=== PATIENT | male | born 1950 | race Caucasian/White ===

== ENCOUNTER 2022-11-19 21:14 | Inpatient (IN) | payer MEDICARE, BC ==
[~2022-11-19] VITALS: Ht 170.2 cm; Wt 82.6 kg
--- NOTE | 2022-11-19 21:20 | NUR ---
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 PATIENT WAS GIVEN ASPIRIN 325 MG, AND NITROGLYCERIN X 2 SKIN PASS OPERATOR. PT IS AAO X 4, HARD OF HEARING, DOES NOT APPEAR IN DISTRESS. PER PATIENT SYMPTOMS INCLUDE MILD DYSPNEA. PT IS TACHYPNEIC AT TRIAGE , DENIES NAUSEA/VOMITING. PT ATTACHED TO MONITOR AND PULSE OX. AWAITING MD CARRANZA
--- NOTE | 2022-11-19 21:30 | NUR ---
SWAB FOR COVID19 SENT TO LAB
--- NOTE | 2022-11-19 21:40 | NUR ---
HEALTH POLICY NURSE AT BEDSIDE
--- NOTE | 2022-11-19 21:40 | NUR ---
BLOOD DRAWN, SENT TO LAB
[2022-11-19 21:45] LABS: BASOPHILS % (AUTO) 0.3 % (0.0-2.0); EOSINOPHILS % (AUTO) 2.5 % (0.0-6.0); HEMATOCRIT 43 % (39-51); HEMOGLOBIN 14.2 g/dL (13.5-17.5); LYMPHOCYTES # (AUTO) 2.4 K/uL (0.8-4.8); LYMPHOCYTES % (AUTO) 28.8 % (20.0-44.0); MEAN CORPUSCULAR HGB CONC 33 g/dl (31.0-36.0); MEAN CORPUSCULAR VOLUME 85 fL (80-96); MONOCYTES # (AUTO) 0.6 K/uL (0.1-1.30); MONOCYTES % (AUTO) 7.1 % (2.0-12.0); NEUTROPHILS # (AUTO) 5.2 K/uL (1.8-8.9); NEUTROPHILS % (AUTO) 61.3 % (43.0-81.0); PLATELET COUNT (AUTO) 172 K/uL (150-450); RED BLOOD CELL COUNT(AUTO) 5.02 MIL/uL (4.5-6.0); WHITE BLOOD COUNT (AUTO) 8.4 K/uL (4.3-11.0)
[2022-11-19 21:58] LABS: CALCIUM, SERUM 9.4 mg/dL (8.5-10.1); CARBON DIOXIDE 31 mmol/L (21-32); CHLORIDE 99 mmol/L (98-107); CREATININE 1.1 mg/dL (0.6-1.3); GLUCOSE 130 mg/dL (74-106); SODIUM SERUM 137 mmol/L (136-145); UREA NITROGEN, BLOOD 18 mg/dL (7-18)
[2022-11-19 22:04] LABS: ALANINE AMINOTRANSFERASE 21 U/L (12-78); ALKALINE PHOSPHATASE 75 U/L (46-116); ASPARTATE AMINOTRANSFERASE 17 U/L (15-37); BILIRUBIN,DIRECT 0.2 mg/dL (0.0-0.2); BILIRUBIN,TOTAL 0.6 mg/dL (0.2-1.0)
--- NOTE | 2022-11-19 22:13 | NUR ---
PT STILL UNABLE TO PROVIDE URINE SPECIMEN AT THIS TIME.
--- NOTE | 2022-11-19 22:25 | NUR ---
DR VITALE AT BEDSIDE
--- NOTE | 2022-11-19 22:46 | NUR ---
MRSA SWAB COLLECTED, SENT TO LAB
[2022-11-20] VITALS: BP 164/97
[2022-11-20] MEDS ORDERED: MAG HYDROX/AL HYDROX/SIMETH 30 ML UDC PO PRN
[2022-11-20] MEDS ORDERED: MORPHINE SULFATE INJ 2 MG/ML DISP.SYRIN IV PRN
[2022-11-20] MEDS ORDERED: ONDANSETRON HCL/PF 4 MG/2 ML VIAL IVP PRN
[2022-11-20] MEDS ORDERED: DOCUSATE SODIUM 100 MG CAPSULE PO PRN
[2022-11-20] MEDS ORDERED: ACETAMINOPHEN 325 MG TABLET PO PRN
[2022-11-20] MEDS ORDERED: hydrALAZINE HCL IV 20 MG VIAL IV PRN
[2022-11-20] MEDS ORDERED: NITROGLYCERIN 0.4 MG/TAB BOTTLE SL PRN
--- NOTE | 2022-11-20 00:32 | NUR ---
[id number]
--- NOTE | 2022-11-20 00:38 | NUR ---
REPORT GIVEN TO KEELY PHILIPPE
[2022-11-20 01:00] VITALS: BP 164/97
--- NOTE | 2022-11-20 01:00 | NUR ---
RN NOTE PT A/O X4 ABLE TO MAKE NEEDS KNOW ON 1L OF OXYGEN TOLERATING WELL. NO RESPIRATORY DISTRESS NOTED. PT REPORTED NO PAIN AT THIS TIME. PT NOTED WITH IV ACCESS ON THE LAC #18G S/L INTACT FLUSHING WELL.PT PLACED ON TELE MONITOR READING SR 70S. PT REPORTED TO CHEST PAIN AT THIS TIME. PT ORIENTED TO UNIT AND ROOM TABLE WITHIN REACH.HOB ELEVATED FOR SAFETY. CALL LIGHT WITHIN REACH.
--- NOTE | 2022-11-20 01:06 | NUR ---
TRANSFERRED TO BED 313 IN STABLE CONDITION
--- NOTE | 2022-11-20 01:12 | NUR ---
PT TRANSFERRED TO [facility] 314-1 VIA ACLS PROTOCOL. VS WNL.
[2022-11-20] MEDS: FUROSEMIDE 20 MG/2 ML VIAL IV SCH ×3 (01:28→16:15)
[2022-11-20 04:00] VITALS: BP 145/77
[2022-11-20 05:57] LABS: BILIRUBIN,URINE NEGATIVE (NEGATIVE); COLOR,URINE YELLOW (YELLOW); LEUKOCYTE ESTERASE ,URINE NEGATIVE (NEGATIVE); NITRITE, URINE NEGATIVE (NEGATIVE); PH,URINE 7.5 (5.0-8.0); PROTEIN,URINE NEGATIVE (NEGATIVE); UGLUCOSE NEGATIVE (NEGATIVE); UROBILINOGEN,URINE 0.2 EU/dL (0.2)
--- NOTE | 2022-11-20 06:38 | NUR ---
RN NOTE PT A/O X4 ABLE TO MAKE NEEDS KNOW ON 1L OF OXYGEN TOLERATING WELL. NO RESPIRATORY DISTRESS NOTED. PT REPORTED NO PAIN AT THIS TIME. PT WITH IV ACCESS ON THE LAC #18G S/L INTACT FLUSHING WELL.PT PLACED ON TELE MONITOR READING SR 70S. PT REPORTED NO CHEST PAIN AT THIS TIME. PT WITH BILATERAL HEARING AIDS ON AT THIS TIME.PT WITH URINE OUTPUT 700ML DURING SHIFT. ALL NEEDS MET. WILL ENDORSE CARE TO DAY SHIFT NURSE.
--- NOTE | 2022-11-20 07:06 | NUR ---
SIGN PAINTER APPRENTICE OPENING NOTES RECEIVED PATIENT SLEEPING IN BED, A/Ox4, [place], HEARING AIDS IN PLACE, ABLE TO MAKE NEEDS KNOWN. ON 1L OF O2 VIA NC. NO S/S OF RESPIRATORY DISTRESS. ON TELE MONITORING SHOWING SINUS RHYTHM HR 73. NO S/S OF CARDIAC DISTRESS OR DISCOMFORT. IV ACCESS LAC #18 S/L. INTACT AND PATENT, NO S/S OF INFILTRATION. PATIENT CONTINENT USES URINAL. SKIN INTACT. SAFETY MEASURES IN PLACE: BED LOCKED AND IN LOWEST POSITION, HOB ELEVATED, SIDE RAILS UPx2, CALL LIGHT WITHIN REACH. WILL CONTINUE TO MONITOR.
[2022-11-20 07:08] LABS: BASOPHILS % (AUTO) 0.3 % (0.0-2.0); EOSINOPHILS % (AUTO) 2.4 % (0.0-6.0); HEMATOCRIT 39 % (39-51); HEMOGLOBIN 13.2 g/dL (13.5-17.5); LYMPHOCYTES # (AUTO) 1.9 K/uL (0.8-4.8); LYMPHOCYTES % (AUTO) 26.1 % (20.0-44.0); MEAN CORPUSCULAR HGB CONC 34 g/dl (31.0-36.0); MEAN CORPUSCULAR VOLUME 84 fL (80-96); MONOCYTES # (AUTO) 0.6 K/uL (0.1-1.30); MONOCYTES % (AUTO) 8.3 % (2.0-12.0); NEUTROPHILS # (AUTO) 4.7 K/uL (1.8-8.9); NEUTROPHILS % (AUTO) 62.9 % (43.0-81.0); PLATELET COUNT (AUTO) 164 K/uL (150-450); RED BLOOD CELL COUNT(AUTO) 4.67 MIL/uL (4.5-6.0); WHITE BLOOD COUNT (AUTO) 7.4 K/uL (4.3-11.0)
[2022-11-20 07:33] LABS: ALBUMIN 3.5 g/dL (3.4-5.0); BILIRUBIN,TOTAL 0.9 mg/dL (0.2-1.0); CALCIUM, SERUM 8.9 mg/dL (8.5-10.1); MAGNESIUM 2.2 mg/dL (1.8-2.4); PHOSPHORUS 3.3 mg/dL (2.5-4.9); POTASSIUM 3.8 mmol/L (3.5-5.1); TOTAL PROTEIN, SERUM 7.1 g/dL (6.4-8.2)
[2022-11-20] MEDS ORDERED: HYDR-3976 PO (07:45)
[2022-11-20 07:53] LABS: THYROID STIMULATING HORMONE 1.414 uIU/mL (0.358-3.74)
[2022-11-20] MEDS: ASPIRIN 81 MG TAB.CHEW PO SCH (08:35)
[2022-11-20] MEDS ORDERED: ENOXAPARIN SODIUM 40 MG/0.4 ML DISP.SYRIN SQ SCH (09:00)
--- NOTE | 2022-11-20 09:07 | NUR ---
RN NOTES PATIENT COMPLAINED OF GENERALIZED PAIN 8/. PRN MORPHINE ADMINISTERED, WILL CONTINUE TO MONITOR.
[2022-11-20 09:57] LABS: CHOLESTEROL 169 mg/dL (<200); HDL CHOLESTEROL 50 mg/dL (40-60); LDL 114 mg/dL (0-99); TRIGLYCERIDES 47 mg/dL (30-150)
[2022-11-20] MEDS ORDERED: ENOXAPARIN SODIUM 40 MG/0.4 ML DISP.SYRIN SQ ONE (10:00)
[2022-11-20] MEDS ORDERED: ENOXAPARIN SODIUM 80 MG/0.8 ML DISP.SYRIN SQ SCH (10:00)
[2022-11-20] MEDS: METOPROLOL TARTRATE 50 MG TABLET PO SCH ×2 (10:09→20:46)
[2022-11-20] MEDS: MORPHINE SULFATE INJ 4 MG/ML DISP.SYRIN IV PRN ×3 (13:32→21:50)
--- NOTE | 2022-11-20 13:33 | NUR ---
RN NOTES PATIENT COMPLAINED OF GENERALIZED PAIN 8/10, PRN MORPHINE ADMINISTERED. WILL CONTINUE TO MONITOR.
[2022-11-20 14:00] VITALS: BP 158/88
--- NOTE | 2022-11-20 17:45 | NUR ---
RN NOTES PATIENT COMPLAINED OF PAIN 8/10 GENERALIZED, PRN MORPHINE ADMINISTERED. WILL CONTINUE TO MONITOR.
--- NOTE | 2022-11-20 18:41 | NUR ---
STAPLE CUTTER CLOSING NOTES RECEIVED PATIENT AWAKE IN BED, A/Ox4, ANIAK, HEARING AIDS IN PLACE, ABLE TO MAKE NEEDS KNOWN. STABLE ON 1L OF O2 VIA NC. NO S/S OF RESPIRATORY DISTRESS. ON TELE MONITORING SHOWING SINUS RHYTHM HR 90 NO S/S OF CARDIAC DISTRESS OR DISCOMFORT. IV ACCESS LAC #18 S/L. INTACT AND PATENT, NO S/S OF INFILTRATION. PATIENT CONTINENT USES URINAL. SKIN INTACT. ALL DUE MEDICATION ADMINISTERED. SAFETY MEASURES MAINTAINED: BED LOCKED AND IN LOWEST POSITION, HOB ELEVATED, SIDE RAILS UPx2, CALL LIGHT WITHIN REACH. WILL ENDORSE TO NEXT SHIFT ANY SANTI.
[2022-11-20 20:00] VITALS: BP 164/93
--- NOTE | 2022-11-20 20:04 | NUR ---
MASONRY CONTRACTOR ADMINISTRATOR OPENING NOTES RECEIVED PATIENT IN BED, A/O X 4. ON MODERATE HIGH BACK REST POSITION. ON ROOM AIR TOLERATING WELL, NO S/S OF SHORTNESS OF BREATH AND BREATH EVENLY. WITH IV ACCESS AT LAC #18G PATENT AND INTACT. NO COMPLAINS OF PAIN OR CHEST PAIN AT THIS TIME. ATTACHED TO TELE MONITORING DEVICE. AMBULATE WITH ASSISTANCE. KEPT BED ON LOWER LOCKED POSITION, KEPT SIDE RAILS UP X 2 ALL THE TIME. SAFETY MEASURES MAINTAINED. WILL CONTINUE TO MONITOR
[2022-11-20] MEDS: ENOXAPARIN SODIUM 80 MG/0.8 ML DISP.SYRIN SQ SCH (20:47)
[2022-11-21] MEDS: MORPHINE SULFATE INJ 4 MG/ML DISP.SYRIN IV PRN ×3 (01:58→10:15)
[2022-11-21 06:19] LABS: BASOPHILS % (AUTO) 0.2 % (0.0-2.0); EOSINOPHILS % (AUTO) 0.4 % (0.0-6.0); HEMATOCRIT 45 % (39-51); HEMOGLOBIN 15.2 g/dL (13.5-17.5); LYMPHOCYTES % (AUTO) 24.3 % (20.0-44.0); MEAN CORPUSCULAR HGB CONC 34 g/dl (31.0-36.0); MEAN CORPUSCULAR VOLUME 85 fL (80-96); MONOCYTES % (AUTO) 7.7 % (2.0-12.0); NEUTROPHILS # (AUTO) 8.4 K/uL (1.8-8.9); NEUTROPHILS % (AUTO) 67.4 % (43.0-81.0); PLATELET COUNT (AUTO) 198 K/uL (150-450); RED BLOOD CELL COUNT(AUTO) 5.38 MIL/uL (4.5-6.0); WHITE BLOOD COUNT (AUTO) 12.4 K/uL (4.3-11.0)
--- NOTE | 2022-11-21 06:40 | NUR ---
PROTEIN SPECIALIST CLOSING NOTES PATIENT IS BED, AWAKE AND COHERENT. A/O X 4. ON MODERATE HIGH BACK REST POSITION. HOOKED TO OXYGEN VIA NASAL CANNULA AT 2 LPM SATURATING WELL AT 97%. BREATH EVENLY NO S/S OF SHORTNESS OF BREATH AT THIS TIME. WITH IV ACCESS AT LAC #18G PATENT AND INTACT. ON CARDIAC DIET. NO EPISODES OF CHEST PAIN NOTED AT THIS THIS TIME. WITH STABLE VITAL SIGNS. KEPT BED ON LOWER LOCKED POSITION, KEPT SIDE RAILS X 2 ALL THE TIME. KEPT CALL LIGHT WITHIN AT REACH. WILL ENDORSED TO AM SHIFT FOR SANTI.
[2022-11-21 07:11] LABS: ALBUMIN 3.9 g/dL (3.4-5.0); BILIRUBIN,TOTAL 1.5 mg/dL (0.2-1.0); CALCIUM, SERUM 9.5 mg/dL (8.5-10.1); CREATININE 1.2 mg/dL (0.6-1.3); MAGNESIUM 2.2 mg/dL (1.8-2.4); PHOSPHORUS 3.4 mg/dL (2.5-4.9); POTASSIUM 3.2 mmol/L (3.5-5.1); TOTAL PROTEIN, SERUM 7.9 g/dL (6.4-8.2)
--- NOTE | 2022-11-21 07:30 | NUR ---
RN OPENING NOTE PATIENT AWAKE IN BED RESTING, A/O X 4. NO S/S OF PAIN NOTED AT THIS TIME. ON ROOM AIR, BREATHING EVEN UNLABORED, NO DISTRESS OR SHORTNESS OF BREATH NOTED AT THIS TIME. IV ACCESS LAC #18G, INTACT PATENT AND FLUSHING WELL. FALL AND SAFETY MEASURES IN PLACE, BED ALARM ON, BED IN LOW AND LOCK POSITION, CALL LIGHT AND TABLE WITHIN EASY REACH, SIDE RAILS UP X2. WILL CONTINUE TO MONITOR.
[2022-11-21] MEDS: ENOXAPARIN SODIUM 80 MG/0.8 ML DISP.SYRIN SQ SCH ×2 (09:09→21:22)
[2022-11-21] MEDS: METOPROLOL TARTRATE 50 MG TABLET PO SCH ×2 (09:12→21:16)
[2022-11-21] MEDS: ASPIRIN 81 MG TAB.CHEW PO SCH (09:12)
[2022-11-21] MEDS: FUROSEMIDE 20 MG/2 ML VIAL IV SCH ×2 (09:12→16:00)
[2022-11-21] MEDS ORDERED: POTASSIUM CHLORIDE 20 MEQ TAB.PRT.SR PO ONE (11:00)
[2022-11-21] MEDS: BUPRENORPHINE HCL 8 MG TAB.SUBL SL SCH ×2 (12:32→16:01)
--- NOTE | 2022-11-21 16:10 | NUR ---
RN NOTE PATIENT WAS HAVING WITHDRAWALS SYMPTOMS, VERY RESTLESS UNABLE TO STAY STILL, TACHYCARDIC DOCTOR WAS INFORMED AND ORDERED ATIVAN 2MG Q3HRS PRN, ORDER WAS PLACED, WILL CONTINUE TO MONITOR.
[2022-11-21] MEDS: LORAZEPAM INJ 2 MG/ML VIAL IV PRN ×2 (16:38→21:58)
--- NOTE | 2022-11-21 18:34 | NUR ---
RN CLOSING NOTE PATIENT AWAKE IN BED RESTING, A/O X 4, RESTLESS AT TIMES. NO S/S OF PAIN NOTED AT THIS TIME. ON ROOM AIR, BREATHING EVEN UNLABORED, NO DISTRESS OR SHORTNESS OF BREATH NOTED AT THIS TIME. IV ACCESS LAC #18G, INTACT PATENT AND FLUSHING WELL. PATIENT WITH EXTERNAL ROBOTIC WELDING OPERATOR WITH CURRENT READING OF SR AND HR OF 84. SCHEDULE MEDICATIONS ADMINISTERED. FALL AND SAFETY MEASURES IN PLACE, BED ALARM ON, BED IN LOW AND LOCK POSITION, CALL LIGHT AND TABLE WITHIN EASY REACH, SIDE RAILS UP X2. ALL NEEDS ATTENDED AND ANTICIPATED. WILL ENDORSE TO AGENT BROKER.
--- NOTE | 2022-11-21 19:30 | NUR ---
TELE BILLING CONTROL CLERK INITIAL NOTES RECEIVED PT IN BED AWAKE AND ALERT WATCHING TV AT THIS TIME, NOT IN ANY DISCOMFORT. HE HAD HEPLOCK ON HIS LEFT AC GAUGE 18 PATENT AND INTACT. PT REQUESTED TO HAVE SOMETHING TO HELP RELAX . NO SIGNS SOB NOTED ON ROOM AIR AT THIS TIME. PT AWARE OF HIS PROCEDURE KATIE.I TOLD HIM THAT HE WILL BE NPO AFTER MIDNIGHT BECAUSE HIS PROCEDURE HAVE CONTRAST. NO ALLERGY ON CONTRAST PER PT. TELE SINUS RHYTHM PER MONITOR. BED IN LOW AND LOCK IN POSITION WITH SIDE RAILS X2 UP AND BED IN LOW AND LOCK IN POSITION PLACE CALL LIGHT AT REACH.
[2022-11-21 20:00] VITALS: BP 144/82
[2022-11-21] MEDS: ATORVASTATIN 40 MG TABLET PO SCH (21:16)
[2022-11-22] VITALS: BP 146/73
[2022-11-22] MEDS: LORAZEPAM INJ 2 MG/ML VIAL IV PRN ×2 (03:16→16:19)
--- NOTE | 2022-11-22 03:23 | NUR ---
TELE RETAIL SERVICE SPECIALIST NOTES PT WOKE UP ANXIOUS, RESTLESS. SINUS TACH ON TELE MONITOR HEART RATE 140-150. DENIES ANY CHEST PAIN. ATIVAN 2 MG IVP GIVEN BY JAYLEN /RN ORDERED. SAFETY PRECAUTION IMPLEMENT AND OBSERVED. WILL CONTINUE MONITORING. PLACE CALL LIGHT AT REACH.
[2022-11-22 04:00] VITALS: BP 109/80
[2022-11-22 07:00] VITALS: BP 153/89
[2022-11-22 07:18] LABS: BASOPHILS % (AUTO) 0.2 % (0.0-2.0); CALCIUM, SERUM 9.3 mg/dL (8.5-10.1); CARBON DIOXIDE 23 mmol/L (21-32); CHLORIDE 96 mmol/L (98-107); CREATININE 1.4 mg/dL (0.6-1.3); EOSINOPHILS % (AUTO) 0.1 % (0.0-6.0); GLUCOSE 115 mg/dL (74-106); HEMATOCRIT 48 % (39-51); HEMOGLOBIN 15.8 g/dL (13.5-17.5); LYMPHOCYTES # (AUTO) 2.8 K/uL (0.8-4.8); LYMPHOCYTES % (AUTO) 18.2 % (20.0-44.0); MAGNESIUM 2.4 mg/dL (1.8-2.4); MEAN CORPUSCULAR HGB CONC 33 g/dl (31.0-36.0); MEAN CORPUSCULAR VOLUME 85 fL (80-96); MONOCYTES # (AUTO) 1.2 K/uL (0.1-1.30); MONOCYTES % (AUTO) 7.6 % (2.0-12.0); NEUTROPHILS # (AUTO) 11.2 K/uL (1.8-8.9); NEUTROPHILS % (AUTO) 73.9 % (43.0-81.0); PHOSPHORUS 3.3 mg/dL (2.5-4.9); PLATELET COUNT (AUTO) 204 K/uL (150-450); POTASSIUM 3.7 mmol/L (3.5-5.1); RED BLOOD CELL COUNT(AUTO) 5.64 MIL/uL (4.5-6.0); SODIUM SERUM 132 mmol/L (136-145); UREA NITROGEN, BLOOD 29 mg/dL (7-18); WHITE BLOOD COUNT (AUTO) 15.2 K/uL (4.3-11.0)
--- NOTE | 2022-11-22 07:42 | NUR ---
TELE TELECOMMUNICATIONS FIELD ENGINEER CLOSING NOTES PATIENT RESTING AFTER ATIVAN GIVEN EARLIER. HE'S CALMED AT THIS TIME. TELE SINUS RHYTHM PER MONITOR. VITAL SIGNS WITHIN NORMAL LIMIT. STABLE THROUGHOUT THE NIGHT. ALL DUE MEDS GIVEN AND ALL NEEDS MET. KEPT HIM NPO AT THIS TIME BECAUSE HE HAD CT -ANGIO OF THE HEART WITH 3D IMAGING. HEPLOCK PATENT AND INTACT. PATIENT IS AWARE OF HIS PROCEDURE TODAY. KEPT HIM WARM AND COMFORTABLE AT ALL TIMES. BED IN LOW AND LOCK IN POSITION WITH SIDE RAILS X2 UP BED ALARM SET FOR SAFETY. ENDORSE TO AM NURSE FOR CONTINUITY OF CARE. PLACE CALL LIGHT AT REACH.
--- NOTE | 2022-11-22 07:52 | NUR ---
IRON PILER OPENING NOTE PATIENT RESTING IN BED, A/OX4, NO S/S OF PAIN NOTED AT THIS TIME. ON ROOM AIR, BREATHING EVEN NONLABORED, NO DISTRESS OR SHORTNESS OF BREATH NOTED AT THIS TIME. IV ACCESS LAC #18G, INTACT PATENT AND FLUSHING WELL. NPO AT THIS TIME BECAUSE HE HAS CT-ANGIO OF THE HEART WITH 3D IMAGING. PT IS ON EXTERNAL BANK CONSULTANT. SAFETY MEASURES IN PLACE. BED IN LOW AND LOCKED POSITION, SIDE RAILS UP X2, CALL LIGHT PLACE WITHIN EASY REACH. WILL CONTINUE TO MONITOR PATIENT.
[2022-11-22] MEDS ORDERED: IV NS 0.9% 1,000 ML IV PRN (09:00)
[2022-11-22] MEDS: ASPIRIN 81 MG TAB.CHEW PO SCH (09:03)
[2022-11-22] MEDS: BUPRENORPHINE HCL 8 MG TAB.SUBL SL SCH ×2 (09:04→16:19)
[2022-11-22] MEDS: METOPROLOL TARTRATE 50 MG TABLET PO SCH ×2 (09:04→20:29)
[2022-11-22] MEDS: ENOXAPARIN SODIUM 80 MG/0.8 ML DISP.SYRIN SQ SCH ×2 (09:06→20:30)
[2022-11-22] MEDS ORDERED: IOHEXOL-350 100 ML VIAL IV ONE (10:02)
[2022-11-22] MEDS ORDERED: IV NS 0.9% 250 ML IV ONE (10:02)
[2022-11-22] MEDS ORDERED: CT SWABBABLE VALVE TRANS SET 1 EA INFUS.SET MC ONE (10:02)
[2022-11-22] MEDS: METOPROLOL TARTRATE INJ 5 MG/5 ML AMPUL IVP PRN ×6 (10:35→11:00)
[2022-11-22] MEDS ORDERED: METOPROLOL TARTRATE INJ 5 MG/5 ML AMPUL ONE ×2 (10:42→10:52)
[2022-11-22] MEDS ORDERED: NITROGLYCERIN 0.4 MG/TAB BOTTLE ONE (10:42)
[2022-11-22] MEDS ORDERED: NITROGLYCERIN 0.4 MG/TAB BOTTLE SL ONE (11:00)
[2022-11-22 11:33] VITALS: BP 116/68
[2022-11-22 16:00] VITALS: BP 147/80
--- NOTE | 2022-11-22 16:20 | NUR ---
RN NOTE PT RESTLESS, ATIVAN PRN ADMINISTERED. WILL CONTINUE TO MONITOR.
--- NOTE | 2022-11-22 18:45 | NUR ---
ADHESIVE PRIMER CLOSING NOTE PATIENT AWAKE IN BED RESTING, A/O X 4, RESTLESS AT TIMES. NO S/S OF PAIN NOTED AT THIS TIME. ON ROOM AIR, BREATHING EVEN UNLABORED, NO DISTRESS OR SHORTNESS OF BREATH NOTED AT THIS TIME. IV ACCESS LAC #18G, INTACT PATENT AND FLUSHING WELL. PATIENT WITH EXTERNAL STEEL ROD BUSTER WITH CURRENT READING OF SR AND HR OF 82. ALL DUE MEDICATIONS ADMINISTERED. FALL AND SAFETY MEASURES IN PLACE, BED ALARM ON, BED IN LOW AND LOCK POSITION, CALL LIGHT AND TABLE WITHIN EASY REACH, SIDE RAILS UP X2. ALL NEEDS ATTENDED AND ANTICIPATED. WILL ENDORSE TO SAMMYING MACHINE OPERATOR FOR SANTI.
--- NOTE | 2022-11-22 19:45 | NUR ---
INSOLE LIP TURNER OPENING NOTE PATIENT SLEEPING IN BED, EASILY AWAKENED, PT ALERT/ORIENTED X 4, PT ABLE TO MAKE NEEDS KNOWN. PATIENT STABLE ON 2 LPM OF O2 VIA NASAL CANNULA, NO S/S OF DISTRESS OR SOB NOTED, BREATHING EVEN AND UNLABORED. IV ACCESS ON LAC #18G INTACT AND INFUSING NS @ 40 ML/HR. SAFETY MEASURES IN PLACE: CALL LIGHT WITHIN REACH, SIDE RAILS UP X 2, BED LOCKED IN LOWEST POSITION, HOB ELEVATED, BED ALARM ON. WILL CONTINUE TO MONITOR PATIENT
[2022-11-22 20:00] VITALS: BP 119/74
[2022-11-22] MEDS: ATORVASTATIN 40 MG TABLET PO SCH (22:21)
[2022-11-23] VITALS: BP 111/66
[2022-11-23] MEDS: LORAZEPAM INJ 2 MG/ML VIAL IV PRN (01:11)
--- NOTE | 2022-11-23 01:11 | NUR ---
SANITATION TRUCK DRIVER NOTE PATIENT FEELING ANXIOUS AND RESTLESS. WILL ADMINISTER ATIVAN 2 MG IV PER ORDER
[2022-11-23 04:00] VITALS: BP 133/76
--- NOTE | 2022-11-23 06:42 | NUR ---
FORM BUILDING SUPERVISOR CLOSING NOTES PATIENT AWAKE IN BED, PT ALERT/ORIENTED X 4, PT ABLE TO MAKE NEEDS KNOWN. PATIENT STABLE ON 2 LPM OF O2 VIA NASAL CANNULA PRN, NO S/S OF DISTRESS OR SOB NOTED, BREATHING EVEN AND UNLABORED. PATIENT ON EXTERNAL TIMBER DEADENER READING RHYTHM, HR: 81. IV ACCESS ON LAC #18G INTACT AND INFUSING NS @ 40 ML/HR. MEDICATIONS GIVEN ORDERED, PT NEEDS MET THROUGHOUT SHIFT, PT SLEPT WELL THROUGH THE NIGHT. SAFETY MEASURES IN PLACE: CALL LIGHT WITHIN REACH, SIDE RAILS UP X 2, BED LOCKED IN LOWEST POSITION, HOB ELEVATED, BED ALARM ON. WILL ENDORSE TO DAYSHIFT RN FOR CONTINUITY OF CARE
[2022-11-23 06:57] LABS: BASOPHILS % (AUTO) 0.5 % (0.0-2.0); EOSINOPHILS % (AUTO) 0.8 % (0.0-6.0); HEMATOCRIT 43 % (39-51); HEMOGLOBIN 14.5 g/dL (13.5-17.5); LYMPHOCYTES # (AUTO) 3.3 K/uL (0.8-4.8); LYMPHOCYTES % (AUTO) 33.3 % (20.0-44.0); MEAN CORPUSCULAR HGB CONC 34 g/dl (31.0-36.0); MEAN CORPUSCULAR VOLUME 85 fL (80-96); MONOCYTES # (AUTO) 0.9 K/uL (0.1-1.30); MONOCYTES % (AUTO) 9.4 % (2.0-12.0); NEUTROPHILS # (AUTO) 5.5 K/uL (1.8-8.9); PLATELET COUNT (AUTO) 170 K/uL (150-450); RED BLOOD CELL COUNT(AUTO) 5.04 MIL/uL (4.5-6.0); WHITE BLOOD COUNT (AUTO) 9.9 K/uL (4.3-11.0)
[2022-11-23 07:11] LABS: ALBUMIN 3.2 g/dL (3.4-5.0); BILIRUBIN,TOTAL 0.9 mg/dL (0.2-1.0); CALCIUM, SERUM 8.7 mg/dL (8.5-10.1); CREATININE 1.2 mg/dL (0.6-1.3); MAGNESIUM 2.4 mg/dL (1.8-2.4); PHOSPHORUS 3.3 mg/dL (2.5-4.9); POTASSIUM 3.9 mmol/L (3.5-5.1); TOTAL PROTEIN, SERUM 6.9 g/dL (6.4-8.2)
--- NOTE | 2022-11-23 07:30 | NUR ---
RN NOTE CRITICAL LAB RECEIVED FOR TROPONIN [id number] HERRERA NOTIFIED. NO NEW ORDER. WILL CONTINUE TO MONITOR PATIENT.
--- NOTE | 2022-11-23 07:45 | NUR ---
TRANSPORTATION PROGRAM DIRECTOR OPENING NOTE PATIENT AWAKE IN BED, A/OX4, NO S/S OF PAIN NOTED AT THIS TIME. PT ON NC 2LPM, BREATHING EVEN NON LABORED, NO DISTRESS OR SHORTNESS OF BREATH NOTED AT THIS TIME. IV ACCESS LAC #18G, INTACT PATENT AND FLUSHING WELL, RUNNING NS @40 ML/HR. PT IS ON EXTERNAL DIRECTOR BUSINESS DEVELOPMENT READING SR @76BPM. SAFETY MEASURES IN PLACE. BED IN LOW AND LOCKED POSITION, SIDE RAILS UP X2, CALL LIGHT PLACE WITHIN EASY REACH. WILL CONTINUE TO MONITOR PATIENT.
[2022-11-23] MEDS ORDERED: ENOXAPARIN SODIUM 40 MG/0.4 ML DISP.SYRIN SQ SCH (08:00)
[2022-11-23] MEDS: ASPIRIN 81 MG TAB.CHEW PO SCH (08:53)
[2022-11-23 08:57] VITALS: BP 102/63
[2022-11-23] MEDS ORDERED: VALSARTAN 80 MG TABLET PO SCH (09:00)
[2022-11-23] MEDS: METOPROLOL TARTRATE 50 MG TABLET PO SCH (09:00)
[2022-11-23] MEDS: BUPRENORPHINE HCL 8 MG TAB.SUBL SL SCH ×2 (09:01→16:22)
--- NOTE | 2022-11-23 12:43 | NUR ---
SW Consult: SW consult requested for patient possible opioid abuse. Patient presents alert and oriented x3 (self,place,time). Patient brought in for Midsternal chest pain. Patient appeared to be irritable. Patient presented with a flat affect. Patient reported he is unsure why he was brought to the hospital and said that he possibly had a chest pain "heart attack". Patient reports that he lives home located at [address] [place] [address]; ([phone]). Patient expressed that he lives with Danielle ([phone]) and she cares for him. 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 SW assessed for suicidal or homicidal, pt denied. SW assessed any hallucinations visual/auditory, pt denied. SW assessed for substance abuse and pt expressed that he does not smoke but he does use heroin. He stated that he has been abusing heroin since last week. He stated that he has been using heroin for the past two years. Pt does not want treatment for his substance abuse. However, SW offered pt resources and pt was accepting of substance abuse referrals. DC PLAN: Patient reports that he lives home located at [address] [place] [address]; ([phone]) and he would want to return back home. Substance Abuse resources provided included: [facility] Substance Abuse Self-Helpline ([facility]) ; [facility] [address] [facility]. [place] [id number] ; [facility] [address] [facility] [address] ; [facility] [address] [facility] [address] ; [facility] [address] [facility] [id number] ; [facility] [address] [facility] [address] ; [facility] [address] [facility] [phone] ; [facility] Substance Abuse Helpline([facility])-[facility] ; [facility] ; [facility] [place]; [facility] [place]; [facility] [place]; [facility] [place]; [facility] [place]; [facility] [place]; [facility] [place]; [email or web address]. [place]; Alcoholics Anonymous [facility]; [place] ; Marijuana Anonymous [facility]; Narcotics Anonymous www.na.org;
[2022-11-23] MEDS ORDERED: ASPI-1169 PO (13:12)
[2022-11-23] MEDS ORDERED: METO50TA16 PO (13:12)
[2022-11-23] MEDS ORDERED: ATOR40TA PO (13:12)
[2022-11-23] MEDS ORDERED: VALS80TA31 PO (13:12)
[2022-11-23 16:00] VITALS: BP 113/68
--- NOTE | 2022-11-23 18:15 | NUR ---
COMMUNICATIONS SENIOR ASSOCIATE NOTE PATIENT DISCHARGE IN STABLE MEDICAL CONDITION. A/OX4. VS TAKEN, STABLE AND RECORDED. NO IV ACCESS. NAME ARM BAND REMOVED. SKIN ASSESSMENT DONE. EXTERNAL BOXING INSTRUCTOR REMOVED AND RETURNED TO TELE DESK. ALL BELONGINGS CHECKED AND SIGNED. HEALTH TEACHING AND DISCHARGE INSTRUCTION GIVEN TO PATIENT. INSTRUCTED PATIENT TO MAKE AN APPOINTMENT WITH HIS PRIMARY DOCTOR IN 7 DAYS. DISCUSSED PRESCRIPTIONS WITH PATIENT. INSTRUCTED IN CASE OF EMERGENCY TO CALL 911 OR GO TO NEAREST ER. PATIENT LEFT VIA PRIVATE CAR WITH HIS . SEGMENT PRODUCER ESCORTED THEM TO [facility]OB[facility]. CHARGE NURSE AWARE OF DISCHARGE.
== END 2022-11-23 18:30 | disposition home or self-care (01) | DRG 280 ==
LOC: ER 21:20 → TELE 11-20 00:38
PROVIDERS: ADMIT Registered Nurse; ATTEND Nurse Practitioner Acute Care
DX: I11.0 Hypertensive heart disease with heart failure (principal); I21.A1 Myocardial infarction type 2; I50.33 Acute on chronic diastolic (congestive) heart failure; N17.0 Acute kidney failure with tubular necrosis; E87.1 Hypo-osmolality and hyponatremia; F11.23 Opioid dependence with withdrawal; E87.20 Acidosis, unspecified; E44.1 Mild protein-calorie malnutrition; I16.0 Hypertensive urgency; Z20.822 Contact with and (suspected) exposure to COVID-19; Z88.0 Allergy status to penicillin; F19.10 Other psychoactive substance abuse, uncomplicated; D72.829 Elevated white blood cell count, unspecified; E88.09 Other disorders of plasma-protein metabolism, not elsewhere classified; E80.6 Other disorders of bilirubin metabolism; E87.6 Hypokalemia
CPT/HCPCS: 36415; 71045-TC; 75574; 80048-TC; 80053-TC; 80061-TC; 80076-TC; 83605-TC; 83735-TC; 84100-TC; 84443-TC; 84484-TC; 85025-TC; 85730-TC; 87040-TC; 87081-TC; 87086-TC; 93307-TC; A4223; C9803; G0378; J1650; J1940; J2060; J2270; J3490; J7030; J7050; Q9967